=== PATIENT | female | born 1990 | race American Indian/Alaskan Native ===

== ENCOUNTER 2020-06-26 15:18 | Day surgery (SDC) | payer OTHER ==
[2020-06-26] MEDS ORDERED: SODIUM CHLORIDE 0.9% 1000 ML 1,000 ML IV ONE (15:32)
--- NOTE | 2020-06-26 15:42 | Emergency Department Report ---
ED HPI - General Chief complaint: Abdominal Pain Stated complaint: ECTOPIC Time Seen by Provider: 06/26/20 15:31 Source: patient, EMS Mode of arrival: Stretcher Limitations: No Limitations - History of Present Illness Initial comments: 30-year-old female G5, P2, presents to ED with possible ruptured ectopic . Patient was seen in the ER on yesterday and diagnosed with a left- sided ectopic at 7 weeks. Patient was given methotrexate therapy on yesterday. She states that around 2 AM she began having shoulder pain. Patient states pain has worsened, she is also feeling dizzy. Patient reports her lower abdominal pain has improved, however she is now having pain in the right and left upper quadrants of her abdomen. Patient states she was having vaginal bleeding on yesterday and she is still having bleeding today. Patient called EMS for transfer to ER. EMS reports patient tachycardic and hypotensive with systolic BP in the 80s upon arrival. OB: Dr. India Guzman MD Complaint: abdominal pain, vaginal bleeding -: days(s) (2) Location: other (RUQ, LUQ) Severity: moderate Quality: sharp Consistency: constant Improves with: none Worsens with: none Associated symptoms: vaginal bleeding Vaginal bleeding: heavy, clots :: Yes Number of weeks : 7 OB History - Current : other (ectopic) - Related Data Allergies Allergy/AdvReac Type Severity Reaction Status Date / Time doxycycline Allergy Hives Verified 06/26/20 16:31 ED Review of Systems ROS: Stated complaint: ECTOPIC Other details as noted in HPI Comment: All other systems reviewed and negative Gastrointestinal: abdominal pain Genitourinary: other (reports vag bleeding) ED Past Medical Hx - Past Medical History Hx GERD: Yes - Surgical History Additional Surgical History: hernia repair. abdominal bypass for GERD? - Social History Smoking Status: Never Smoker ED Physical Exam - General Limitations: No Limitations General appearance: alert, other (appears uncomfortable) - Head Head exam: Present: atraumatic, normocephalic - Eye Eye exam: Present: normal appearance, EOMI - ENT ENT exam: Present: mucous membranes moist - Neck Neck exam: Present: normal inspection - Respiratory Respiratory exam: Present: normal lung sounds bilaterally. Absent: respiratory distress - Cardiovascular Cardiovascular Exam: Present: regular rate, normal rhythm - GI/Abdominal GI/Abdominal exam: Present: soft, tenderness (moderate RUQ, LUQ tender; mild LLQ tender). Absent: distended - Extremities Exam Extremities exam: Present: normal inspection - Neurological Exam Neurological exam: Present: alert, oriented X3 - Psychiatric Psychiatric exam: Present: normal affect, normal mood - Skin Skin exam: Present: warm, dry, intact, normal color. Absent: rash ED Course Vital Signs 06/26/20 06/26/20 06/26/20 15:28 15:30 15:46 Pulse Rate 86 84 Respiratory 21 15 Rate Blood Pressure 114/68 105/36 O2 Sat by Pulse 100 100 98 Oximetry 06/26/20 06/26/20 06/26/20 16:16 16:30 16:46 Pulse Rate 98 H 77 103 H Respiratory 20 15 19 Rate Blood Pressure 105/36 108/85 102/60 O2 Sat by Pulse 100 100 Oximetry 06/26/20 06/26/20 06/26/20 17:00 17:16 17:30 Pulse Rate 72 67 78 Respiratory 15 15 28 H Rate Blood Pressure 105/36 120/55 120/55 O2 Sat by Pulse 100 100 95 Oximetry 06/26/20 06/26/20 06/26/20 17:46 18:00 18:16 Pulse Rate 73 67 99 H Respiratory 21 18 20 Rate Blood Pressure 131/65 149/51 139/59 O2 Sat by Pulse 100 97 Oximetry 06/26/20 18:30 Pulse Rate 71 Respiratory 17 Rate Blood Pressure 141/61 O2 Sat by Pulse 100 Oximetry - Reevaluation(s) Reevaluation #1: 06/26/20 15:32 Called US to come to bedside to perform US. States tech currently in w/ radiologist doing thoracentesis. Reevaluation #2: 06/26/20 15:44 Dr Alicea at bedside to evaluate pt. Reevaluation #3: 06/26/20 16:20 Dr Alicea went w/ pt for US. States pt appears to be ruptured. Will take to OR. ED Medical Decision Making - Lab Data Result diagrams: 06/26/20 15:39 06/26/20 15:39 - Radiology Data Radiology results: report reviewed, image reviewed - Medical Decision Making 30 yo F w/ ruptured ectopic . Vital signs stable. Pt seen and evaluated by Dr Alicea. She will be taken to the OR. Hemoglobin is normal. - Differential Diagnosis ruptured ectopic Critical Care Time: Yes Critical care time in (mins) excluding proc time.: 35 Critical care attestation.: If time is entered above; I have spent that time in minutes in the direct care of this critically ill patient, excluding procedure time. Critical Care Time: 35 min ED Disposition Clinical Impression: Ruptured ectopic Disposition: OP ADMIT IP TO THIS HOSP Is pt being admited?: Yes Condition: Stable Instructions: Abdominal Pain (ED) Referrals: PRIMARY CARE, [Primary Care Provider] - 3-5 Days Time of Disposition: 16:20
[2020-06-26 16:21] LABS: Basophils % (Auto) 0.3 % (0.0-1.8); Eosinophils % (Auto) 0.1 % (0.0-4.3); Hematocrit 33.2 % (30.3-42.9); Lymphocytes # (Auto) 1.1 K/mm3 (1.2-5.4); Lymphocytes % (Auto) 11.4 % (13.4-35.0); Mean Corpuscular HGB Conc 33 % (30-34); Mean Corpuscular Volume 83 fl (79-97); Monocytes # (Auto) 0.6 K/mm3 (0.0-0.8); Monocytes % (Auto) 5.9 % (0.0-7.3); Platelet Count 381 K/mm3 (140-440); Red Blood Count 4.01 M/mm3 (3.65-5.03); Red Cell Distribution Width 17.1 % (13.2-15.2)
[2020-06-26 16:27] LABS: Blood Urea Nitrogen 10 mg/dL (7-17); Calcium 8.2 mg/dL (8.4-10.2); Hemolysis Index 6
[2020-06-26 16:28] LABS: BUN/Creatinine Ratio 17
[2020-06-26] MEDS ORDERED: fentaNYL 100 MCG/2 ML INJ IV ONE ×2 (16:32→17:43)
[2020-06-26] MEDS ORDERED: ONDANSETRON 4 MG/2 ML INJ IV ONE (16:32)
--- NOTE | 2020-06-26 16:40 | Ultrasound Report ---
ULTRASOUND OBSTETRIC INDICATION: Unspecified abdominal pain. TECHNIQUE: Transabdominal. COMPARISON: None available. FINDINGS: GESTATIONAL SAC: None seen. YOLK SAC: None seen. EMBRYO/FETUS: None seen. ADNEXA: A complex left adnexal mass measures 4.0 x 2.7 x 3.4 cm with internal color flow. The left ov andre is not clearly distinguished from this finding. No significant right adnexal abnormality. FREE FLUID: None. ADDITIONAL FINDINGS: None. IMPRESSION: 1. No intrauterine is identified. 2. Complex left adnexal mass without visualization of an associated gestational sac. Neoplasm of the left ovary and ectopic are considerations. Please correlate with the patient's beta HCG lev el. Dr. Alicea was present as the exam was performed. Signer Name: Adarsh Montgomery MD Signed: 06/26/2020 4:36 PM Workstation Name: [id number]
--- NOTE | 2020-06-26 16:40 | History and Physical Report ---
History of Present Illness Date of examination: 06/26/20 Chief complaint: Abdominal and shoulder pain History of present illness: This is a 30yof treated with Methotrexate yesterday at [facility] for an ectopic . She noticed abdominal pain that started at ~2am that became progressively worse throughout the day and presents now with persistent abdominal pain that radiates to her right shoulder. States she's had some vaginal bleeding. Records from [facility] were reviewed via her phone: QBCG 707p, hgb 11, US ? Left corpus luteum cyst, no IUP. Today with tender abdomen and transabdominal US reveals fluid in abdomen. Hgb stable. However with symptoms and previous diagnosis suspect ruptured ectopic. Discussed observation vs proceeding with surgical intervention which would entail removal of the fallopian tube if an ectopic is present. She voiced understanding and desires to proceed with surgical intervention. 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: chlamydia, gonorrhea, hepatitis B, hepatitis C, herpes, HIV, syphilis Social history: denies: smoking, alcohol abuse, prescription drug abuse, IV drug use Medications and Allergies Allergies Allergy/AdvReac Type Severity Reaction Status Date / Time doxycycline Allergy Hives Verified 06/26/20 16:31 Active Meds: Active Medications Sodium Chloride (Nacl 0.9% 1000 Ml) 1,000 mls @ 999 mls/hr IV BOLUS ONE Stop: 06/26/20 16:32 Cefazolin Sodium (Ancef/Sterile Water 2 Gm/20 Ml) 2 gm in 20 mls @ 80 mls/hr IV PREOP NR; Protocol Review of Systems All systems: negative Gastrointestinal: abdominal pain Genitourinary: vaginal bleeding - Vital Signs Vital signs: Vital Signs Pulse Ox 100 06/26/20 15:28 Temp Pulse Resp BP Pulse Ox 98 H 20 105/36 98 06/26/20 16:16 06/26/20 16:16 06/26/20 16:16 06/26/20 15:46 Patient in obvious distress, complaining of persistent pain and she cannot get comfortable - Physical Exam Abdomen: Positive: tenderness (diffusely) Results Result Diagrams: 06/26/20 15:39 06/26/20 15:39 Abnormal lab results 04/15/21 04/15/21 Range/Units 15:39 15:39 MCH 27 L (28-32) pg RDW 17.1 H (13.2-15.2) % Lymph % (Auto) 11.4 L (13.4-35.0) % Lymph # (Auto) 1.1 L (1.2-5.4) K/mm3 Seg Neutrophils % 82.3 H (40.0-70.0) % Seg Neutrophils # 7.8 H (1.8-7.7) K/mm3 Chloride 107.4 H (98-107) mmol/L Carbon Dioxide 21 L (22-30) mmol/L Glucose 111 H (65-100) mg/dL Calcium 8.2 L (8.4-10.2) mg/dL All other labs normal. Ultrasound: report reviewed, image reviewed Assessment and Plan - Patient Problems (1) Ectopic Current Visit: Yes Status: Acute Plan to address problem: US findings and labs discussed with patient, states she still in significant pain and desires to proceed with surgical therapy. She was informed if ectopic is present the tube will be removed. Risk discussed, including but not limited to, bleeding, infection, injury to bowel, bladder, ureters or surrounding organs, she voiced understanding. Questions were encouraged. Consents were reviewed and signed.
[2020-06-26] MEDS ORDERED: ceFAZolin/Water 2 GM/20 ML 2 GM/20 ML SYRINGE IV NR (17:00)
[2020-06-26] MEDS ORDERED: BUPIVACAINE/PF (0.5%) 5 MG/1 ML 30 ML VIAL INFILTRATI ONE ×2 (18:20→19:33)
[2020-06-26] MEDS ORDERED: HYDROmorphone 1 MG/1 ML INJ ONE (18:27)
[2020-06-26] MEDS ORDERED: propofoL 200 MG/20 ML VIAL IV ONE (18:27)
[2020-06-26] MEDS ORDERED: SUCCINYLCHOLINE CHLORIDE 200 MG/10 ML INJ MDV ONE (18:27)
[2020-06-26] MEDS ORDERED: LIDOCAINE MPF (2%) 20 MG/1 ML VIAL 5 ML ONE (18:27)
[2020-06-26] MEDS ORDERED: ROCURONIUM 50 MG/5 ML INJ IV ONE (18:27)
--- NOTE | 2020-06-26 18:31 | Anesthesia Consultation ---
Anesthesia Consult and Med Hx Date of service: 06/26/20 - Airway Anesthetic Teeth Evaluation: Good ROM Head & Neck: Adequate Mental/Hyoid Distance: Adequate Mallampati Class: Class II Intubation Access Assessment: Probably Good - Pre-Operative Health Status ASA Pre-Surgery Classification: ASA3, Emergency Proposed Anesthetic Plan: General - Pulmonary Hx Smoking: No Hx Respiratory Symptoms: No - Cardiovascular System Hx Hypertension: No - Central Nervous System CVA: No - Endocrine Hx Renal Disease: No Hx Liver Disease: No Hx Insulin Dependent Diabetes: No Hx Non-Insulin Dependent Diabetes: No Hx Thyroid Disease: No - Hematic Hx Anemia: Yes - Other Systems Hx Obesity: Yes (BMI 41) - Additional Comments Anesthesia Medical History Comments: Laparoscopy for suspected ruptured ectopic . HD stable. GETA + stnd ASA monitors.
--- NOTE | 2020-06-26 18:32 | Anesthesia Day of Surgery ---
Anesthesia Day of Surgery - Day of Surgery Patient Examined: Yes Patient H&P Reviewed: Yes Patient is NPO: Yes
[2020-06-26] MEDS ORDERED: HYDROmorphone 1 MG/1 ML INJ IV PRN (18:33)
[2020-06-26] MEDS ORDERED: ONDANSETRON 4 MG/2 ML INJ IV PRN (18:33)
[2020-06-26] MEDS ORDERED: MIDAZOLAM 2 MG/2 ML INJ ONE (18:41)
[2020-06-26] MEDS ORDERED: dexAMETHasone 20 MG/5 ML VIAL ONE (19:00)
[2020-06-26] MEDS ORDERED: PHENYLEPHRINE/NS 1,000 MCG/10 ML SYRINGE (OR USE) IV ONE (19:01)
[2020-06-26] MEDS ORDERED: SODIUM CHLORIDE 0.9% IRRIG SOLN 2000 ML IR ONE (19:33)
[2020-06-26] MEDS ORDERED: NEOSTIGMINE 10MG/10 ML INJ MDV ONE (19:51)
[2020-06-26] MEDS ORDERED: GLYCOPYRROLATE 0.4 MG/2 ML INJ ONE (19:51)
[2020-06-26] MEDS ORDERED: KETOROLAC 30 MG/1 ML INJ ONE (19:51)
[2020-06-26] MEDS ORDERED: ONDANSETRON 4 MG/2 ML INJ ONE ×2 (19:52→20:00)
[2020-06-26] MEDS ORDERED: SODIUM CHLORIDE 0.9% 1000 ML 1,000 ML ONE (19:55)
--- NOTE | 2020-06-26 20:23 | Operative Report ---
Operative Report Operative Report: Date of operation: 06/26/2020 Pre-operative diagnosis: 1. Ectopic tubal Post-operative diagnosis: 1. Left tubal ectopic Procedure name(s): 1. Laparoscopic left salpingectomy Surgeon: Steph Alicea MD Operations General Agent: Liza Guzman Anesthesia: General endotracheal anesthesia Anesthesiologist: Dr. Monie Ge EBL: 500 mL of old blood aspirated from the pelvis Urine output: 150 mL of clear yellow urine Findings: Grossly normal uterus and right fallopian tube and bilateral ovaries. Large ruptured ectopic in the left fallopian tube. Procedure: After risks, benefits, complications, consequences and alterna tives for this procedure were discussed with patient and she voiced understanding desire to proceed, the patient was taken to the operating suite and placed in the supine position. General anesthesia was induced. She placed in dorsolithotomy position and prepped and draped in the usual sterile fashion. Timeout was performed. The bladder was drained of approximately 150 cc of clear yellow urine. An operative speculum was introduced into the vagina, and the anterior lip of the cervix was grasped with an Allis clamp. The uterus was sounded to 8 cm. The cervix was progressively dilated to allow the Sargis uterine manipulator to be placed without difficulty. The speculum and clamp were removed. Sterile gloves were placed and attention was turned to the abdomen. An infraumbilical incision was made and a 5 mm bladeless Optiview trocar was placed with laparoscope and camera inserted. No obvious bowel, bladder, ureteral or major vascular injury was noted. The abdomen was insufflated. Blood was immediately noted to be in her abdomen and pelvis. She was then placed in Trendelenburg position. The above findings were noted. Then an incision was made approximately 2 cm superior to the symphysis pubis in the midline. An 10 mm bladeless trocar was introduced under the direct visualization. Again no obvious bowel, bladder, ureteral or major vascular injury was noted. An additional 5 mm trocar was placed through an incision that was made in the midclavicular lower abdominal region under direct visualization. Again no bowel, bladder, ureteral, or major vascular injury was noted. The uterus was elevated, and using the 5 mm [place] LigaSure device the left tube was grasped, cauterized, and incised. Then in a serial manner the mesosalpinx was grasped, cauterized, and incised to remove the left fallopian tube. An Endo Catch bag was placed through the 10 mm trocar, and the tube with ectopic was placed into the bag and removed through this incision. The pelvis was irrigated with warm normal saline. Attention was turned back to the adnexa where hemostasis was noted and Meghann was placed. The CO2 was released under direct visualization to ensure hemostasis. Hemostasis was noted. The patient was taken out of Trendelenburg position and the rest of the blood and clots were aspirated. At which point the procedure was ended. The 10 mm trochars removed under direct visualization hemostasis was noted. Using the Ady Vázquez fascial closure device 0 Vicryl was placed through the fascia to approximate the edges. The CO2 was then released. The right 5 mm trocar was removed. Hemostasis was noted. The incisions were infused with half percent Marcaine without epinephrine. The incisions were reapproximated using 4-0 Monocryl in a subcuticular manner. Hemostasis was noted. Attention was turned to the vagina where the Sargis uterine manipulator was removed. Hemostasis was noted. The Damon catheter was removed clear yellow urine was noted to drain to the catheter. Patient was taken to recovery room in stable condition.
[2020-06-26] MEDS ORDERED: oxyCODONE /ACETAMINOPHEN 5-325MG TAB PO PRN (20:25)
--- NOTE | 2020-06-26 20:37 | Discharge Summary ---
Providers - Providers Date of discharge: 06/26/20 Primary care physician: BRAYAN CHRISTIAN MD Hospitalization Condition: Good Procedures: Laparoscopic left salpingectomy for ectopic Hospital course: See H&P patient was admitted with known ectopic and worsening abdominal pain. She underwent laparoscopic left salpingectomy. Postoperative course was unremarkable. Disposition: DC-01 TO HOME OR SELFCARE Final Discharge Diagnosis (Prints w/discharge instructions): Laparoscopic left salpingectomy for ectopic - Discharge Diagnoses (1) Ectopic Status: Acute Core Measure Documentation - Palliative Care Palliative Care/ Comfort Measures: Not Applicable - Core Measures Any of the following diagnoses?: none Exam - Constitutional Vitals: Temp Pulse Resp BP Pulse Ox 97.5 F L 120 H 16 125/77 99 06/26/20 20:11 06/26/20 20:11 06/26/20 20:11 06/26/20 20:11 06/26/20 20:11 General appearance: Present: no acute distress - Respiratory Respiratory effort: normal - Cardiovascular Rhythm: regular - Psychiatric Psychiatric: appropriate mood/affect, intact judgment & insight, memory intact, cooperative Plan Activity: other (No sex. No driving for 48 hours. Ambulate frequently on your property. Void frequently.) Weight Bearing Status: Full Weight Bearing Diet: regular (Avoid fatty, spicy, high salt foods. Drink approximately 100 ounces of water a day.) Wound: open to air, keep clean and dry Special Instructions: no heavy lifting (Greater than 15 pounds) Follow up with: BRAYAN CHRISTIAN MD [Primary Care Provider] - 3-5 Days CELESTE CASTRO MD [Staff Physician] - 7 Days Prescriptions: Ibuprofen [Motrin 800 MG tab] 800 mg PO TID PRN #30 tablet PRN Reason: Pain oxyCODONE /ACETAMINOPHEN [Percocet 5/325 mg] 1 - 2 tab PO Q6HR PRN #7 tablet PRN Reason: Pain
[2020-06-26 22:03] VITALS: BP 124/70
== END 2020-06-26 22:05 | disposition home or self-care (01) ==
LOC: ED 15:18 → OR 20:57
DX: O00.102 Left tubal pregnancy without intrauterine pregnancy (principal); K21.9 Gastro-esophageal reflux disease without esophagitis; E66.9 Obesity, unspecified; D64.9 Anemia, unspecified; Z88.8 Allergy status to other drugs, medicaments and biological substances; Z79.899 Other long term (current) drug therapy; Z68.41 Body mass index [BMI] 40.0-44.9, adult
CPT/HCPCS: 36415; 59151; 76801; 80048; 84702; 85025; 86850; 86900; 86901; 88305; 96365; 96375; 99291; A4217; J0330; J0690; J1100; J1170; J1885; J2250; J2370; J2405; J2704; J2710; J3010; J7030